=== PATIENT | female | born 1980 | race Caucasian/White ===

== ENCOUNTER 2017-09-30 22:42 | Emergency (ER) ==
[2017-09-30] MEDS ORDERED: ZOFRAN 4 MG/2 ML IVP STA (22:46)
[2017-09-30] MEDS ORDERED: DILAUDID 1 MG/ML SYRINGE IVP PRN (22:46)
[2017-09-30 22:53] VITALS: BP 144/88; TEMP 98; BMI 32.8
[2017-09-30] MEDS ORDERED: DILAUDID 1 MG/ML SYRINGE ONE (23:02)
--- NOTE | 2017-10-01 00:19 | CT ---
EXAM: CT scan abdomen pelvis without contrast HISTORY: Right-sided pain COMPARISON: None. FINDINGS: Contiguous axial images obtained through the abdomen pelvis without contrast utilizing 3-m m collimation. Sagittal and coronal reconstructions were imaged and reviewed.. Visualized lung base s are clear. The gallbladder is fluid filled without cholelithiasis. Liver, pancreas, spleen and ad renal glands have normal unenhanced CT appearance. Kidneys are morphologically normal. The abdomina l aorta is normal in course and caliber.. There is no free fluid or inflammatory changes. Degenerat e disc disease is noted L5-L1. IMPRESSION: No acute intra-abdominal findings. Mobile cecum.
--- NOTE | 2017-10-01 00:39 | ED.PDOC ---
General ED Provider: Dr. NILESH HERRING-ER Chief Complaint: Abdominal Pain Stated Complaint: im hurting--i have gallstones Time Seen by Physician: 22:45 Mode of Arrival: Walk-In Information Source: Patient Exam Limitations: No limitations Nursing and Triage Documentation Reviewed and Agree: Yes Reviewed sepsis parameters & appropriate labs ordered?: Yes System Inflammatory Response Syndrome: Not Applicable Sepsis Protocol: For patient's 13 years and over: Temp is 96.8 and below OR 101 and greater Pulse >90 BPM Resp >20/minute Acutely Altered Mental Status Are patient's symptoms suggestive of a new infection, such as: -Pneumonia -Skin, Soft Tissue -Endocarditis -UTI -Bone, Joint Infection -Implantable Device -Acute Abdominal Infection -Wound Infection -Meningitis -Blood Stream Catheter Infection -Unknown GI Complaint Exam - Abdominal Pain Complaint/Exam Onset: Gradual Duration: several hours Symptoms Are: Still present Timing: Constant Initial Severity: Mild Current Severity: Moderate Location of Pain: RUQ Radiates To: Reports: Back Character: Reports: Dull, Aching, Cramping Aggravating: Reports: Food Alleviating: Reports: None Associated Signs and Symptoms: Reports: Nausea. Denies: Diaphoresis, Fever, Cough, Chest pain, Dizziness, Back pain, Constipation, Dysuria, Urinary frequency, Decreased urine output, Decreased appetite, Vaginal bleeding, Vaginal discharge, Vomiting, Diarrhea, Sore throat, Decreased activity Patient Rh Status: Unknown Abdominal Findings: Present: None Differential Diagnoses: Constipation, Pancreatitis, Ureteral Stone, GB, UTI Quality Indicator For Non-Traumatic Chest Pain/Syncope: EKG Performed Review of Systems - Review Of Systems Constitutional: Reports: No symptoms Eyes: Reports: No symptoms Ears, Nose, Mouth, Throat: Reports: No symptoms Respiratory: Reports: No symptoms Cardiac: Reports: No symptoms GI: Reports: Abdominal pain, Nausea : Reports: No symptoms Musculoskeletal: Reports: No symptoms Skin: Reports: No symptoms Neurological: Reports: No symptoms Endocrine: Reports: No symptoms Hematologic/Lymphatic: Reports: No symptoms All Other Systems: Reviewed and Negative Past Medical History - Past Medical History Previously Healthy: Yes Endocrine: Reports: Unknown Cardiovascular: Reports: Unknown Respiratory: Reports: Unknown Hematological: Reports: Unknown Gastrointestinal: Reports: Unknown Genitourinary: Reports: Unknown Neuro/Psych: Reports: Unknown Musculoskeletal: Reports: Unknown Cancer: Reports: Unknown Last Menstrual Period: 2 WEEKS AGO - Surgical History General Surgical History: Reports: Unknown - Family History Family History: Reports: Unknown - Social History Smoking Status: Former smoker Hx Substance Use: No Alcohol Screening: Occasionally - Immunizations Tetanus Shot up to Date: (UNKNOWN) Physical Exam - Physical Exam Appearance: Well-appearing, No pain distress, Well-nourished Pain Distress: Moderate Eyes: CHACHA, EOMI, Conjunctiva clear ENT: Ears normal, Nose normal, Oropharynx normal Neck: Supple Respiratory: Airway patent, Breath sounds clear, Breath sounds equal, Respirations nonlabored Cardiovascular: RRR GI/: Soft, No masses, Bowel sounds normal, No Organomegaly, Tender Musculoskeletal: Normal strength Skin: Warm, Dry, Normal color Neurological: Sensation intact, Motor intact, Reflexes intact, Cranial nerves intact, Alert, Oriented Psychiatric: Affect appropriate, Mood appropriate, Anxious Interpretation - Radiology Interpretation Radiology Interpretation By: Radiologist Radiology Results: Negative Exam Interpreted: CT Scan Re-Evaluation - Re-Evaluation Time of Re-Evaluation: 00:39 Status: Improved Vital Signs Stable: Yes Pain Level: 0 Appearance: NAD Lungs: Clear Skin: Warm and Dry Neuro: Alert and Oriented X3 CV: RRR Critical Care Note - Critical Care Note Total Time (mins): 0 Course - Course Hematology/Chemistry: 09/30/17 22:52 09/30/17 22:52 Orders, Labs, Meds: Lab Review 09/30/17 09/30/17 09/30/17 22:45 22:52 22:52 WBC 14.38 H RBC 4.43 Hgb 13.5 Hct 39.4 MCV 88.9 MCH 30.5 MCHC 34.3 RDW Coeff of Derrek 12.7 Plt Count 249 Immature Gran % (Auto) 0.3 Neut % (Auto) 73.1 Lymph % (Auto) 18.5 [place] % (Auto) 7.1 Eos % (Auto) 0.7 Baso % (Auto) 0.3 Immature Gran # (Auto) 0.1 Neut # 10.5 H Lymph # 2.7 Victoria # 1.0 Eos # 0.1 Baso # 0.1 Sodium 136 Potassium 3.7 Chloride 104 Carbon Dioxide 23 Anion Gap 12.7 BUN 13 Creatinine 0.95 Estimated GFR (MDRD) 66.00 BUN/Creatinine Ratio 13.68 Glucose 128 H Calcium 9.1 Total Bilirubin 0.6 AST 24 ALT 22 Alkaline Phosphatase 71 Total Creatine Kinase 142 CK-MB (CK-2) 1.9 CK-MB (CK-2) % 1.93586 Troponin I < 0.0100 Total Protein 6.8 Albumin 3.9 Globulin 2.9 Albumin/Globulin Ratio 1.34 Amylase 48 Lipase 22 Serum , Qual Urine Color Yellow Urine Clarity Clear Urine pH >=9.0 Ur Specific [place] 1.020 Urine Protein Negative Urine Glucose (UA) Negative Urine Ketones Negative Urine Blood Negative Urine Nitrite Negative Urine Bilirubin Negative Urine Urobilinogen 0.2 Ur Leukocyte Esterase Negative 09/30/17 22:53 WBC RBC Hgb Hct MCV MCH MCHC RDW Coeff of Derrek Plt Count Immature Gran % (Auto) Neut % (Auto) Lymph % (Auto) [place] % (Auto) Eos % (Auto) Baso % (Auto) Immature Gran # (Auto) Neut # Lymph # [place] # Eos # Baso # Sodium Potassium Chloride Carbon Dioxide Anion Gap BUN Creatinine Estimated GFR (MDRD) BUN/Creatinine Ratio Glucose Calcium Total Bilirubin AST ALT Alkaline Phosphatase Total Creatine Kinase CK-MB (CK-2) CK-MB (CK-2) % Troponin I Total Protein Albumin Globulin Albumin/Globulin Ratio Amylase Lipase Serum , Qual Negative Urine Color Urine Clarity Urine pH Ur Specific [place] Urine Protein Urine Glucose (UA) Urine Ketones Urine Blood Urine Nitrite Urine Bilirubin Urine Urobilinogen Ur Leukocyte Esterase Orders Category Date Time Status EKG-(ED ONLY) Stat CARDIO 09/30/17 22:45 Completed 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] .ONCE EMERGENCY 09/30/17 22:47 Active ED IV/MEDIPORT/POWERPORT .ONCE EMERGENCY 09/30/17 22:46 Active AMYLASE Stat LAB 09/30/17 22:52 Completed CBC W/ AUTO DIFF Stat LAB 09/30/17 22:52 Completed COMPREHENSIVE METABOLIC PANEL Stat LAB 09/30/17 22:52 Completed CREATINE KINASE Stat LAB 09/30/17 22:52 Completed LIPASE Stat LAB 09/30/17 22:52 Completed SERUM Stat LAB 09/30/17 22:53 Completed TROPONIN I Stat LAB 09/30/17 22:52 Completed URINALYSIS C & S IF INDICATED Stat LAB 09/30/17 22:45 Completed 0.9 % Sodium Chloride [Saline Flush] MEDS 09/30/17 22:46 Ordered 1 syr IVF PRN PRN Hydromorphone HCl [Dilaudid 1 mg/ml Syringe] MEDS 09/30/17 22:46 Ordered 1 mg IVP Q1HR PRN Ondansetron HCl/Pf [Zofran 4 mg/2 ml] MEDS 09/30/17 22:46 Discontinued 4 mg IVP ONCE STA CT ABDOMEN/PELVIS WO CONTRAST Stat RADS 09/30/17 22:45 Completed Medications Generic Name Dose Route Start Last Admin Trade Name Freq PRN Reason Stop Dose Admin Hydromorphone HCl 1 mg 09/30/17 22:46 09/30/17 23:15 Dilaudid 1 Mg/Ml Syringe IVP 1 mg Q1HR PRN Administration Abdominal Pain Sodium Chloride 1 syr 09/30/17 22:46 09/30/17 23:20 Saline Flush IVF 1 syr PRN PRN Administration To flush IV Discontinued Medications Generic Name Dose Route Start Last Admin Trade Name Freq PRN Reason Stop Dose Admin Ondansetron HCl 4 mg 09/30/17 22:46 09/30/17 23:09 Zofran 4 Mg/2 Ml IVP 09/30/17 22:47 4 mg ONCE STA Administration Vital Signs: Temp Pulse Resp BP Pulse Ox 09/30/17 22:42 98 F 83 24 144/88 H 98 Departure - Departure Time of Disposition: 00:39 Disposition: HOME SELF-CARE Discharge Problem: Abdominal pain Instructions: Biliary Colic (ED), Gallstones (ED), Low Fat Diet (ED) Condition: Good Pt referred to PMD for follow-up: Yes IPMP verified?: No Additional Instructions: low fat diet--librax q 6hrs prn pain #+15--talk to pcp about referral to surgeon Allergies/Adverse Reactions: Allergies No Known Drug Allergies Adverse Reaction (Verified 09/30/17 22:50) Home Medications: Ambulatory Orders 1 [No Reported Medications] 09/30/17 Disposition Discussed With: Patient, Family
== END 2017-10-01 00:55 | disposition home or self-care (01) ==
LOC: ED 22:42
DX: R10.11 Right upper quadrant pain (principal); R11.0 Nausea
CPT/HCPCS: 36415; 80053; 81001; 82150; 82550; 82553; 83690; 84484; 84703; 85025; 93005; 93010; 96374; 96375; 99283